=== PATIENT | male | born 1975 | race Caucasian/White ===

== ENCOUNTER 2016-08-12 12:26 | Emergency (ER) | payer OTHER ==
[2016-08-12 12:44] VITALS: BP 136/87; PULSE 60; TEMP 97.9; BMI 25.5
--- NOTE | 2016-08-12 13:06 | PDOC ---
History of Present Illness - General Chief Complaint: Laceration Stated Complaint: RT 5TH FINGER LACERATION Time Seen by Provider: 08/12/16 12:35 History Source: Patient, Old Records Exam Limitations: No Limitations - History of Present Illness Initial Comments: 08/12/16 13:02 40-year-old left-hand dominant male with no significant past medical history presents the emergency Department with complaints of laceration to the right pinky done just prior to arrival to the ER. The patient states that he was using a utility knife and accidentally cut his finger. There was no broken glass. There is no injury to any other parts of his body. The patient denies numbness or tingling to the digit. Past History - Past Medical History Allergies/Adverse Reactions: Allergies Allergy/AdvReac Type Severity Reaction Status Date / Time No Known Allergies Allergy Verified 08/12/16 12:27 Home Medications: Ambulatory Orders NK [No Known Home Medication] 08/12/16 Other medical history: DENIES - Immunization History Immunization Up to Date: No - Psycho/Social/Smoking Cessation Hx Anxiety: No Suicidal Ideation: No Smoking History: Never smoked Have you smoked in the past 12 months: No Information on smoking cessation initiated: No Hx Alcohol Use: No Drug/Substance Use Hx: No Substance Use Type: None Review of Systems - Review of Systems Constitutional: No: Symptoms Reported, See HPI, Chills, Diaphoresis, Fever, Loss of Appetite, Malaise, Night Sweats, Weakness, Weight Stable, Unintentional Wgt. Loss, Unexplained wgt Loss, Other HEENTM: No: Symptoms Reported, See HPI, Eye Pain, Blurred Vision, Tearing, Recent change in vision, Double Vision, Cataracts, Ear Pain, Ocular Prothesis, Ear Discharge, Nose Pain, Nose Congestion, Tinnitus, Nose Bleeding, Hearing Loss , Throat Pain, Throat Swelling, Mouth Pain, Dental Problems, Difficulty Swallowing, Mouth Swelling, Other Respiratory: No: Symptoms reported, See HPI, Cough, Orthopnea, Shortness of Breath, SOB with Exertion, SOB at Rest, Stridor, Wheezing, Productive cough, Hemoptysis, Other Cardiac (ROS): No: Symptoms Reported, See HPI, Chest Pain, Edema, Irregular Heart Rate, Lightheadedness, Palpitations, Syncope, Chest Tightness, Other ABD/GI: No: Symptoms Reported, See HPI, Abdominal Distended, Abd. Pain w/ defecation, Blood Streaked Bowels, Constipated, Diarrhea, Difficulty Swallowing , Nausea, Poor Appetite, Poor Fluid Intake, Rectal Bleeding, Vomiting, Indigestion, Abdominal cramping, Tarry Stools, Other : No: Symptoms Reported, See HPI, Burning, Dysuria, Discharge, Frequency, Flank Pain, Hematuria, Incontinence, Pain, Urgency, Testicular Mass, Testicular Swelling, Lesions, Testicular Pain, Other Musculoskeletal: No: Symptoms Reported, See HPI, Back Pain, Gout, Joint Pain, Joint Swelling, Muscle Pain, Muscle Weakness, Neck Pain, Joint Stiffness, Other Integumentary: Yes: See HPI *Physical Exam - Vital Signs Last Vital Signs Temp Pulse Resp BP Pulse Ox 97.9 F 60 20 136/87 99 08/12/16 12:27 08/12/16 12:27 08/12/16 12:27 08/12/16 12:27 08/12/16 12:27 - Physical Exam Comments: 08/12/16 13:03 GENERAL: Well developed, well nourished. Awake and alert. No acute distress. MUSCULOSKELETAL Normal range of motion at all joints. No bony deformities or tenderness. No CVA tenderness. EXTREMITIES: Right hand: There is a 1 cm linear superficial laceration to the flexor surface of the distal phalange region. There is minimal bleeding. The digit is neuro-vascularly intact. SKIN: Warm and dry. Normal capillary refill. No rashes. No jaundice. NEUROLOGICAL: Alert, awake, appropriate. Cranial nerves 2-12 intact. Grossly non-focal exam. PSYCHIATRIC: Cooperative. Good eye contact. Appropriate mood and affect. Medical Decision Making - Medical Decision Making 08/12/16 13:05 40-year-old [id number] male with superficial laceration to the right pinky. The wound was irrigated with tap water and Dermabond was applied. The patient tolerated the procedure well. Wound care was discussed with the patient. The patient was advised to return to the emergency department if the wound appears red, swollen, purulent Drainage or any other symptoms. *DC/Admit/Observation/Transfer Diagnosis at time of Disposition: Laceration of right little finger - Discharge Dispostion Disposition: HOME Condition at time of disposition: Stable Admit: No - Referrals - Patient Instructions Printed Discharge Instructions: DI for Laceration Repair With Dermabond, DI for Laceration Repair Additional Instructions: Return to the ED if the wound appears red, swollen, purulent drainage or any other signs of infection. - Post Discharge Activity
== END 2016-08-12 13:00 | disposition home or self-care (01) ==
LOC: FER 12:26
PROC: 0HQFXZZ Repair Right Hand Skin, External Approach (ICD-10-PCS; principal; 2016-08-12)
DX: S61.216A Laceration without foreign body of right little finger without damage to nail, initial encounter (principal); W26.0XXA Contact with knife, initial encounter; Y93.89 Activity, other specified; Y92.9 Unspecified place or not applicable; Y99.0 Civilian activity done for income or pay
CPT/HCPCS: 12001-25; 99283-25